=== PATIENT | female | born 1955 | race Caucasian/White ===

== ENCOUNTER 2018-11-09 12:40 | Day surgery (SDC) | payer MEDICARE, BC ==
[2018-11-09] MEDS ORDERED: PROPOFOL 40 ML (14:55)
== END 2018-11-09 16:28 | disposition home or self-care (01) ==
LOC: GIL 12:40
DX: Z12.11 Encounter for screening for malignant neoplasm of colon (principal); K64.8 Other hemorrhoids; K21.0 Gastro-esophageal reflux disease with esophagitis
CPT/HCPCS: 43239; 88305; 88312; 88313